=== PATIENT | female | born 2000 | race Caucasian/White ===

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

== ENCOUNTER 2020-10-19 03:55 | Inpatient (IN) ==
[2020-10-19] MEDS ORDERED: LACTATED RINGER'S 1,000 ML IV PRN (04:07)
[2020-10-19] MEDS ORDERED: OXYTOCIN 30 UNITS/500 ML BAG IV PRN ×2 (04:07→05:11)
--- NOTE | 2020-10-19 04:14 | History & Physical Report ---
Date of Service October 19, 2020 Assessment & Plan (1) Encounter for supervision of normal in multigravida, antepartum: Plan: IUP at 39+ weeks in active labor epidural hen requested anticipate vaginal delivery History of Present Illness Primary Care Provider: Lisa Shaver MD Patient is a 20 yo white female EDC 10/22/20 who presents in active labor. GBS negative. Blood type O-positive. Allergies Allergy/AdvReac Type Severity Reaction Status Date / Time No Known Drug Allergies Allergy Verified 10/14/20 10:23 Home Medications Medication Instructions Recorded Confirmed Type buprenorphine HCl 8 mg sublingual 8 mg SL BID tab 07/16/19 10/19/20 History tablet prenat.vits,godfrey,kjq-[id number] 1 tab PO DAILY 03/02/20 10/19/20 History breast pump #1 ea 04/01/20 10/14/20 Rx Patient History Surgical History History of hernia repair inguinal Family History Mother Diabetes Hypertension Dyslipidemia Other ADD (attention deficit disorder) Denies family history of Ovarian cancer Breast cancer Colorectal cancer Social History (Updated 03/02/20 @ 09:53 by Farrah Guzman) Smoking Status: Never smoker Second Hand Exposure: No; Hx Alcohol Use: No Hx Substance Use: Yes Last Used Substance Other:: over three years Preferred Language: Syriac Communication Ability: Effective Band Tumbler Required: No Beliefs That Will Affect Care: None marital status: Single marital status details: FOB: Meng (35) [phone] Current Living Situation: Significant Other Current Living Situation Comment: lives with FOB, daughter, no pets. 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 Feels Safe at Home: Yes Safety Concerns: Feels Safe At This Time Assistive Devices: None Review of Systems All systems reviewed & are unremarkable except as noted in HPI & below Physical Exam Constitutional: WD/WN, vitals as above Respiratory: normal respiratory effort, lungs clear to auscultation Cardiovascular: RRR, no murmur, no edema Psychiatric: A+Ox3, euthymic affect Genitourinary: OB Exam Abdomen: + vertex and + regular contractions Manual OB Exam: + cervical dilation 7 cm, + cervical effacement 100% and + station 0 OB Exam Monitor Tracing: + external FHT monitor used, + external uterine monitor used, + category I and + normal FHT variability Coding Level of Care Code None Diagnoses Encounter for supervision of normal in multigravida, antepartum Z34.80
[2020-10-19 04:26] LABS: Hemoglobin 11.7 g/dL (12.0-16.0); Mean Corpuscular Hemoglobin 25.5 pg (25-34); Mean Corpuscular Hgb Conc 32.5 g/dL (32-36); Mean Corpuscular Volume 78.4 fL (80-100); Mean Platelet Volume 10.6 fL (7.4-10.4); Platelet Count 210 K/uL (130-400); RDW Coefficient of Variation 14.8 % (11.5-14.5); Red Blood Count 4.59 M/uL (4.2-5.4); White Blood Count 8.72 K/uL (4.8-10.8)
[2020-10-19] MEDS ORDERED: ACETAMINOPHEN 325 MG TAB PO PRN (05:11)
[2020-10-19] MEDS ORDERED: HYDROCORTISONE ACETATE 25 MG SUPP PR PRN (05:11)
[2020-10-19] MEDS ORDERED: SUPERCREAM 0.870% 15 GM JAR EXT PRN (05:11)
[2020-10-19] MEDS ORDERED: oxyCODONE/ACETAMINOPHEN 5mg/325mg TAB PO PRN (05:11)
[2020-10-19] MEDS ORDERED: bisacodyL 10 MG SUPP PR PRN (05:11)
[2020-10-19] MEDS ORDERED: DIPHTHERIA/TETANUS/PERTUSSIS 0.5 ML SYR/VIAL IM ONE (05:11)
[2020-10-19] MEDS ORDERED: IBUPROFEN 600 MG TAB PO PRN (05:11)
[2020-10-19] MEDS ORDERED: BENZOCAINE 20% AER SPR 82.5 GM CAN EXT PRN (05:11)
[2020-10-19 05:12] LABS: Amphetamines+Metham, Urine Neg (Neg); Barbiturates, Urine Neg (Neg); Benzodiazepine, Urine Neg (Neg); Cocaine, Urine Neg (Neg); MDMA (Ecstacy), Urine Neg (Neg); Methadone, Urine Neg (Neg); Opiate, Urine Neg (Neg); Phencyclidine, Urine Neg (Neg)
--- NOTE | 2020-10-19 05:44 | Delivery Summary ---
Vaginal Delivery Summary Date of Service October 19, 2020 Vaginal Delivery Summary [facility] Patient is a 20-year-old 2 para 0-1-0-1 white female who presents at 39+ weeks in active labor at 7 cm dilation. She was planning an unmedicated and asked that her membranes be ruptured. Membranes were ruptured for clear fluid. Shortly after, she had a strong urge to push. An anterior lip was reduced and she pushed effectively through 1 contraction for delivery of a viable male infant over intact perineum. The was vigorous and moving all 4 limbs. He was placed on the mother's abdomen for further attention and drying. The cord was short and was cut prior to 1 minute to allow the infant to be placed securely on the mother's abdomen. The placenta was expressed intact with a three-vessel cord. bleeding was controlled with dilute Pitocin. estimated blood loss was 200 cc. Mother and were doing well after delivery. [facility] [place] Delivery Charge Delivery Type Details: [facility]
[2020-10-19] MEDS: PRENATAL VITAMIN 1 TAB PO SCH (08:21)
[2020-10-19] MEDS: DOCUSATE SODIUM 100 MG CAP PO SCH ×2 (08:21→21:26)
[2020-10-19] MEDS ORDERED: buprenorphine HCL 8 MG SUBL SL SCH (09:00)
[2020-10-19] MEDS ORDERED: Nursing to Pharmacy Communication SCH (18:00)
[2020-10-19] MEDS: buprenorphine HCL 8 MG SUBL SL SCH (21:27)
--- NOTE | 2020-10-20 05:58 | Obstetrical Progress Note ---
Date of Service <Nedra Sherwood MD - Last Filed: 10/20/20 07:16> October 20, 2020 Assessment & Plan <Nedra Sherwood MD - Last Filed: 10/20/20 07:16> (1) Encounter for care and examination after delivery: 20 yo now PPD1 from at 39wk4d -Continue routine care, anticipated d/c tomorrow but will stay with baby for continued monitoring 2/2 suboxone treatment -Vitals reviewed- HDS, afebrile -Blood type O+, GBS-, Rubella immune -Encourage ambulation, regular diet -Pain control with ibuprofen, acetaminophen PRN -Continue home suboxone -Encourage -Hgb 11.7, asymptomatic -F/u in 6 weeks with OB <Natalia Saeed MD, FACOG - Last Filed: 10/20/20 07:19> (1) Encounter for care and examination after delivery: Subjective <Nedra Sherwood MD - Last Filed: 10/20/20 07:16> Ambulation: ambulating normally Voiding: no voiding problems Passing Gas:: Yes Diet Tolerance:: regular diet Lochia:: Small Feeding Type:: breast feeding Pt and baby doing well, no acute events or complaints. Has not passed BM yet. Pain well controlled, has not needed medication yet. Received home Suboxone last night. Review of Systems Denies fevers/chills. Denies dyspnea, cough. Denies chest pain. Denies breast pain or discharge. Denies dysuria. Denies headache. Denies back pain. Physical Exam <Nedra Sherwood MD - Last Filed: 10/20/20 07:16> General: Alert, oriented, no acute distress Cardiac: Regular rate and rhythm, normal S1, S2. No murmurs appreciated. Respiratory: Clear to auscultation b/l with good air flow entry, symmetric chest rise and fall. No wheezes or crackles. No increased work of breathing or accessory muscle use Abdomen: Soft, nontender, nondistended. Fundus firm and palpable at 2 cm below umbilicus. No guarding or rebound. Skin: No rashes or lesions Extremities: Warm, dry, well-perfused with capillary refill <2s b/l. No lower extremity edema, erythema or swelling. Negative Ysabel's sign b/l. Results & Data ([facility]) <Nedra Sherwood MD - Last Filed: 10/20/20 07:16> Vital Signs (Past 12 Hours) Vital Signs Temp Pulse Resp BP 10/20/20 04:30 36.4 C L 71 18 120/74 10/20/20 00:00 36.6 C 74 18 130/79 10/19/20 19:25 36.8 C 70 18 129/79 <Natalia Saeed MD, FACOG - Last Filed: 10/20/20 07:19> Co-Signing Physician Notes Resident Physician Supervision Note: I interviewed and examined the patient. Discussed with Dr. Martinez and agree with findings and plan as documented in the note. Any exceptions or clarifications are listed here: Doing well. Routine care. d/c to nesting tomorrow. Continue subutex. Documented By: Natalia Saeed MD, FACOG Resident Activity Tracking <Nedra Sherwood MD - Last Filed: 10/20/20 07:16> Resident Involvement: Resident Care Provided Care Provided: OB Delivery
[2020-10-20 07:03] LABS: Hematocrit (blood only) 33.8 % (37-47); Hemoglobin 10.6 g/dL (12.0-16.0); Mean Corpuscular Hemoglobin 25.3 pg (25-34); Mean Corpuscular Hgb Conc 31.4 g/dL (32-36); Mean Corpuscular Volume 80.7 fL (80-100); Mean Platelet Volume 10.7 fL (7.4-10.4); Platelet Count 166 K/uL (130-400); RDW Coefficient of Variation 14.8 % (11.5-14.5); RDW Standard Deviation 43.3 fL (36.4-46.3); Red Blood Count 4.19 M/uL (4.2-5.4); White Blood Count 8.88 K/uL (4.8-10.8)
[2020-10-20] MEDS: DOCUSATE SODIUM 100 MG CAP PO SCH ×2 (08:14→21:00)
[2020-10-20] MEDS: PRENATAL VITAMIN 1 TAB PO SCH (08:14)
[2020-10-20] MEDS: buprenorphine HCL 8 MG SUBL SL SCH ×2 (08:14→21:00)
[2020-10-20] MEDS ORDERED: bisacodyL 5 MG TABEC PO SCH (20:00)
--- NOTE | 2020-10-21 05:50 | Obstetrical Progress Note ---
Date of Service <Nedra Sherwood MD - Last Filed: 10/21/20 07:21> October 21, 2020 Assessment & Plan <Nedra Sherwood MD - Last Filed: 10/21/20 07:21> (1) Encounter for care and examination after delivery: 20 yo now PPD2 from at 39wk4d -Continue routine care, d/c today to nesting, baby to stay for continued monitoring until 10/23 per pediatrics due to maternal suboxone treatment and potential abstinence syndrome -Vitals reviewed- HDS, afebrile -Blood type O+, GBS-, Rubella immune -Encourage ambulation, regular diet -Pain control with ibuprofen, acetaminophen PRN -Continue home suboxone -Encourage -Hgb 11.1, asymptomatic -F/u in 6 weeks with OB <Melinda Canchola MD - Last Filed: 10/21/20 07:31> (1) Encounter for care and examination after delivery: Subjective <Nedra Sherwood MD - Last Filed: 10/21/20 07:21> Ambulation: ambulating normally Voiding: no voiding problems Passing Gas:: Yes Diet Tolerance:: regular diet Lochia:: Small Feeding Type:: breast feeding Pt and baby doing well, no acute events or complaints. Has not passed BM yet. Pain well controlled with medication. Review of Systems Denies fevers/chills. Denies dyspnea, cough. Denies chest pain. Denies breast pain or discharge. Denies dysuria. Denies headache. Denies back pain. Physical Exam <Nedra Sherwood MD - Last Filed: 10/21/20 07:21> General: Alert, oriented, no acute distress Cardiac: Regular rate and rhythm, normal S1, S2. No murmurs appreciated. Respiratory: Clear to auscultation b/l with good air flow entry, symmetric chest rise and fall. No wheezes or crackles. No increased work of breathing or accessory muscle use Abdomen: Soft, nontender, nondistended. Fundus firm and palpable at 2 cm below umbilicus. No guarding or rebound. Skin: No rashes or lesions Extremities: Warm, dry, well-perfused with capillary refill <2s b/l. No lower extremity edema, erythema or swelling. Negative Ysabel's sign b/l. Results & Data ([facility]) <Nedra Sherwood MD - Last Filed: 10/21/20 07:21> Vital Signs (Past 12 Hours) Vital Signs Temp Pulse Resp BP 10/20/20 23:25 36.9 C 61 18 122/82 10/20/20 19:55 36.8 C 66 18 120/76 <Melinda Canchola MD - Last Filed: 10/21/20 07:31> Co-Signing Physician Notes Resident Physician Supervision Note: I interviewed and examined the patient. Discussed with Dr. Sherwood and agree with findings and plan as documented in the note. Any exceptions or clarifications are listed here: [ ] Documented By: Melinda Canchola MD, FACOG Resident Activity Tracking <Nedra Sherwood MD - Last Filed: 10/21/20 07:21> Resident Involvement: Resident Care Provided Care Provided: OB Delivery
[2020-10-21 06:21] LABS: Hematocrit (blood only) 35.4 % (37-47); Hemoglobin 11.1 g/dL (12.0-16.0)
[2020-10-21] MEDS: DOCUSATE SODIUM 100 MG CAP PO SCH (08:48)
[2020-10-21] MEDS: PRENATAL VITAMIN 1 TAB PO SCH (08:49)
[2020-10-21] MEDS: buprenorphine HCL 8 MG SUBL SL SCH (08:49)
[2020-10-21 09:35] LABS: Marijuana Quant, GCMS Urine 14 ng/mL (<5)
--- NOTE | 2020-11-01 15:39 | Coding Query ---
CODING QUERY To promote full compliance with coding requirements relating to patient care, provider participation is requested in all cases of hobbing machine operator uncertainty. Please assist us with the question(s) below: Coding Question(s): The Progress Note on 10/20/20 documents, "Continue routine care, anticipated d/c tomorrow but will stay with baby for continued monitoring 2/2 suboxone treatment", and, "Continue home suboxone". Please specify below, in your clinical opinion. ( ) Suboxone treatment was complicating the /delivery. Please specify further below: ( ) Suboxone treatment is for unknown diagnosis ( x ) Suboxone treatment is for known diagnosis. Please specify diagnosis: history of opioid abuse disorder ( ) Other: Please specify ( ) Suboxone treatment was Not complicating the /delivery ( ) Other: Please Specify Physician's Response(s): Thank you Gayle Berumen Principal Diagnosis: "that condition established after study, to be chiefly responsible for occasioning the admission of the patient to the hospital for care." Co-Existing Principal Diagnosis: "when two or more diagnoses equally meet the criteria for principal diagnosis as determined by the circumstances of admission, diagnostic work up, and/or therapy provided, and the Alphabetic Index, Tabular List, or another coding guideline does not provide sequencing direction, any one of the diagnoses may be sequenced first." "When the physician has documented what appears to be a current diagnosis in the body of the record, but has not included the diagnosis in the final diagnostic statement, the physician should be asked whether the diagnosis should be added." (Source [facility]oding [facility] 2 QTR90. p3-4) YARELY
== END 2020-10-21 10:50 | disposition home or self-care (01) | DRG 807 ==
LOC: OPB 03:55 → 4S1 03:58 → 4S2 07:03